=== PATIENT | female | born 1985 | race Caucasian/White ===

== ENCOUNTER → 2018-03-14 | Outpatient (REF) | payer OTHER ==
[2018-03-14 14:20] LABS: BASO % 0.8 % (0.0-1.0); EOS # 0.2 10^3/uL (0.0-0.50); EOS % 4.6 % (0.0-3.0); HEMATOCRIT 36.2 % (36.0-47.0); HEMOGLOBIN 12.1 g/dl (12.0-15.5); IMMATURE GRANULOCYTE % 0.2 % (0-3.0); LYMPH # 1.8 10^3/uL (1.5-4.5); LYMPH % 35.3 % (24.0-44.0); MEAN CORPUSCULAR HEMOGLOBIN 32.6 pg (27.0-33.0); MEAN CORPUSCULAR HGB CONC 33.4 g/dl (32.0-36.5); MEAN CORPUSCULAR VOLUME 97.6 fl (80.0-96.0); MONO # 0.4 10^3/uL (0.0-0.8); MONO % 8.3 % (0.0-5.0); NEUTROPHILS # 2.6 10^3/uL (1.8-7.7); NEUTROPHILS % 50.8 % (36.0-66.0); PLATELET COUNT, AUTOMATED 262 10^3/uL (150-450); RED BLOOD COUNT 3.71 10^6/uL (4.00-5.40); RED CELL DISTRIBUTION WIDTH 11.9 % (11.5-14.5); WHITE BLOOD COUNT 5.2 10^3/uL (4.0-10.0)
[2018-03-14 14:56] LABS: ALBUMIN 4.1 GM/DL (3.2-5.2); ALBUMIN/GLOBULIN RATIO 1.52 (1.00-1.93); ALKALINE PHOSPHATASE 52 U/L (45-117); ALT/SGPT 22 U/L (12-78); ANION GAP 10 MEQ/L (8-16); AST/SGOT 18 U/L (7-37); BILIRUBIN,TOTAL 0.4 MG/DL (0.2-1.0); BLOOD UREA NITROGEN 11 MG/DL (7-18); CALCIUM LEVEL 9.1 MG/DL (8.5-10.1); CARBON DIOXIDE LEVEL 26 MEQ/L (21-32); CHLORIDE LEVEL 104 MEQ/L (98-107); CREATININE FOR GFR 0.64 MG/DL (0.55-1.30); FOLATE 15.6 NG/ML; GLOMERULAR FILTRATION RATE > 60.0 (>60); GLUCOSE, FASTING 84 MG/DL (70-100); POTASSIUM SERUM 4.3 MEQ/L (3.5-5.1); PROLACTIN 39.3 NG/ML; RHEUMATOID FACTOR QUANT < 10.0 IU/ML (<15.0); SODIUM LEVEL 140 MEQ/L (136-145); TOTAL PROTEIN 6.8 GM/DL (6.4-8.2); VITAMIN B12 LEVEL > 2000.0 PG/ML
[2018-03-14 15:16] LABS: ERYTHROCYTE SEDIMENTATION RATE 16 mm/hr (0-20)
[2018-03-15 14:20] LABS: CERULOPLASMIN 22.2 mg/dL (19.0-39.0)
[2018-03-17 09:53] LABS: ANTINUCLEAR ANTIBODIES DIRECT Negative (Negative); COPPER PLASMA 98 ug/dL (72-166)
== END ==
LOC: M LABNEURO 13:58
DX: F95.9 Tic disorder, unspecified (principal)

== ENCOUNTER 2018-04-13 01:19 | Emergency (ER) | payer OTHER, SELFPAY ==
[2018-04-13] MEDS: MIDAZOLAM INJ 2 MG/2 ML VIAL (J2250) IV ×4 (01:32)
[2018-04-13] MEDS: NS 1,000 ML IV ×8 (01:32→11:24)
[2018-04-13 01:54] LABS: BASO # 0.1 10^3/uL (0.0-0.2); BASO % 0.6 % (0.0-1.0); EOS # 0.3 10^3/uL (0.0-0.50); HEMATOCRIT 34.4 % (36.0-47.0); HEMOGLOBIN 11.6 g/dl (12.0-15.5); IMMATURE GRANULOCYTE % 0.2 % (0-3.0); LYMPH % 37.3 % (24.0-44.0); MEAN CORPUSCULAR HEMOGLOBIN 32.4 pg (27.0-33.0); MEAN CORPUSCULAR HGB CONC 33.7 g/dl (32.0-36.5); MEAN CORPUSCULAR VOLUME 96.1 fl (80.0-96.0); MONO # 0.4 10^3/uL (0.0-0.8); MONO % 5.5 % (0.0-5.0); NEUTROPHILS # 4.2 10^3/uL (1.8-7.7); NEUTROPHILS % 52.4 % (36.0-66.0); PLATELET COUNT, AUTOMATED 259 10^3/uL (150-450); RED BLOOD COUNT 3.58 10^6/uL (4.00-5.40); RED CELL DISTRIBUTION WIDTH 11.6 % (11.5-14.5)
[2018-04-13 02:00] LABS: CONTROL LINE HCG INT CTR LINE PRESENT; HCG, SERUM QUALITATIVE NEGATIVE (NEGATIVE)
[2018-04-13 02:12] LABS: ACETAMINOPHEN LEVEL < 2.0 UG/ML (10.0-30.0); ALBUMIN 3.2 GM/DL (3.2-5.2); ALBUMIN/GLOBULIN RATIO 1.07 (1.00-1.93); ALKALINE PHOSPHATASE 59 U/L (45-117); ALT/SGPT 24 U/L (12-78); ANION GAP 10 MEQ/L (8-16); AST/SGOT 18 U/L (7-37); BILIRUBIN,DIRECT < 0.1 MG/DL (0.0-0.2); BILIRUBIN,TOTAL < 0.1 MG/DL (0.2-1.0); BLOOD UREA NITROGEN 11 MG/DL (7-18); CALCIUM LEVEL 7.6 MG/DL (8.5-10.1); CARBON DIOXIDE LEVEL 21 MEQ/L (21-32); CHLORIDE LEVEL 117 MEQ/L (98-107); CPK CREATINE PHOSPHOKINASE 115 U/L (26-192); CREATININE FOR GFR 0.78 MG/DL (0.55-1.30); ETHYL ALCOHOL (ETHANOL) 0.255 % (0.000-0.010); GLOMERULAR FILTRATION RATE > 60.0 (>60); GLUCOSE, FASTING 94 MG/DL (70-100); POTASSIUM SERUM 3.9 MEQ/L (3.5-5.1); SALICYLATE LEVEL < 1.7 MG/DL (5.0-30.0); SODIUM LEVEL 148 MEQ/L (136-145); TOTAL PROTEIN 6.2 GM/DL (6.4-8.2)
[2018-04-13 03:02] LABS: AMPHETAMINES LEVEL URINE NEGATIVE (NEGATIVE); BARBITURATES URINE NEGATIVE (NEGATIVE); BENZODIAZEPINES URINE POSITIVE (NEGATIVE); CANNABINOIDS URINE NEGATIVE (NEGATIVE); COCAINE METABOLITE URINE NEGATIVE (NEGATIVE); METHADONE URINE NEGATIVE (NEGATIVE); OPIATES URINE NEGATIVE (NEGATIVE); PHENCYCLIDINE URINE NEGATIVE (NEGATIVE)
[2018-04-13] MEDS: ENTER DRUG NAME HERE (PATIENT'S OWN MED) PO ×4 (10:01)
[2018-04-13] MEDS: TETRABENAZINE 12.5 MG PO ×4 (10:10)
== END 2018-04-13 14:44 | disposition home or self-care (01) ==
LOC: M ED 01:19
DX: F10.229 Alcohol dependence with intoxication, unspecified (principal); Y90.1 Blood alcohol level of 20-39 mg/100 ml; Z79.899 Other long term (current) drug therapy
CPT/HCPCS: J2250

== ENCOUNTER 2018-07-06 00:13 | Inpatient (IN) | payer OTHER ==
[~2018-07-06] VITALS: Ht 160 cm; Wt 63.4 kg
[~2018-07-06 00:13] MED LIST: CLON-412 PO; RISP0.2516 PO; TOPA50TA8 PO; [UNRECOGNIZED DRUG - CODE] PO
[2018-07-06] MEDS ORDERED: LIDOCAINE W/EPINEPHRINE 1% 20ML VIAL SC ONE (00:30)
[2018-07-06] MEDS ORDERED: MULTCAP PO (00:31)
[2018-07-06 01:20] LABS: HEMATOCRIT 39.8 % (36.0-47.0); HEMOGLOBIN 13.6 g/dl (12.0-15.5); MEAN CORPUSCULAR HEMOGLOBIN 32.2 pg (27.0-33.0); MEAN CORPUSCULAR HGB CONC 34.2 g/dl (32.0-36.5); MEAN CORPUSCULAR VOLUME 94.1 fl (80.0-96.0); PLATELET COUNT, AUTOMATED 298 10^3/uL (150-450); RED BLOOD COUNT 4.23 10^6/uL (4.00-5.40); WHITE BLOOD COUNT 7.6 10^3/uL (4.0-10.0)
[2018-07-06 01:26] LABS: HCG, SERUM QUALITATIVE NEGATIVE (NEGATIVE)
[2018-07-06 01:47] LABS: AMPHETAMINES LEVEL URINE NEGATIVE (NEGATIVE); BARBITURATES URINE NEGATIVE (NEGATIVE); BENZODIAZEPINES URINE NEGATIVE (NEGATIVE); CANNABINOIDS URINE NEGATIVE (NEGATIVE); COCAINE METABOLITE URINE NEGATIVE (NEGATIVE); METHADONE URINE NEGATIVE (NEGATIVE); OPIATES URINE NEGATIVE (NEGATIVE); PHENCYCLIDINE URINE NEGATIVE (NEGATIVE)
[2018-07-06 01:56] LABS: ACETAMINOPHEN LEVEL < 2.0 UG/ML (10.0-30.0); ALBUMIN 3.7 GM/DL (3.2-5.2); ALT/SGPT 22 U/L (12-78); BILIRUBIN,DIRECT < 0.1 MG/DL (0.0-0.2); BILIRUBIN,TOTAL 0.2 MG/DL (0.2-1.0); BLOOD UREA NITROGEN 13 MG/DL (7-18); CALCIUM LEVEL 8.1 MG/DL (8.5-10.1); CARBON DIOXIDE LEVEL 20 MEQ/L (21-32); CHLORIDE LEVEL 111 MEQ/L (98-107); CREATININE FOR GFR 0.69 MG/DL (0.55-1.30); ETHYL ALCOHOL (ETHANOL) 0.219 % (0.000-0.010); GLOMERULAR FILTRATION RATE > 60.0 (>60); GLUCOSE, FASTING 91 MG/DL (70-100); POTASSIUM SERUM 4.1 MEQ/L (3.5-5.1); SALICYLATE LEVEL < 1.7 MG/DL (5.0-30.0); SODIUM LEVEL 145 MEQ/L (136-145)
[2018-07-06] MEDS ORDERED: IBUPROFEN 600 MG TAB PO ONE (06:15)
[2018-07-06] MEDS ORDERED: LORazepam 2 MG TAB PO STA (09:23)
[2018-07-06] MEDS ORDERED: MAALOX 30 ML SUSP *UDC PO PRN (10:00)
[2018-07-06] MEDS ORDERED: traZODone 50 MG TAB PO PRN (10:00)
[2018-07-06] MEDS ORDERED: ACETAMINOPHEN TAB 650MG DOSE (2X325MG) PO PRN (10:00)
[2018-07-06] MEDS ORDERED: MOM 30ML SUSPENSION UDC PO PRN (10:00)
[2018-07-06] MEDS ORDERED: LORazepam 2 MG TAB PO PRN (10:00)
[2018-07-06] MEDS ORDERED: VITMTA PO (10:26)
[2018-07-06] MEDS ORDERED: IBUPOTC PO (10:26)
[2018-07-06] MEDS ORDERED: DULC5TAB PO (10:26)
[2018-07-06 11:30] VITALS: BP 135/95
[2018-07-06] MEDS: MULTIVITAMINS/MINERALS THERAP 1 TAB PO SCH (11:39)
[2018-07-06] MEDS: FOLIC ACID 1 MG TAB PO SCH (11:39)
[2018-07-06] MEDS: THIAMINE 100 MG TAB PO SCH ×2 (11:39→21:12)
--- NOTE | 2018-07-06 13:08 | HPEPDOC ---
[facility] Medical History & Physical Date of Admission Jul 06, 2018 History and Physical PCP: [facility] ATTENDING: Dr. Mack Spivey HPI: 33yoF admitted to [facility] for unspecified mood disorder, being medically examined today. The pt states she is treated for Tourette's Syndrome as per Dr Baig at [facility]. States she has a h/o vocal and motor tics. States she has been at her baseline. Pt with self inflicted wound to Left wrist with 7 sutures placed in ED. Denies any fevers, chills, weakness, fatigue, PICKARD, CP, SOB, cough, palpitations, abdominal pain, N/V/D or changes in bowel or bladder habits. PMHx: Tourette Syndrome. Pt states she takes tetrabenazine for her Tourette's as per Dr Baig at [facility]. Alcohol use chronic constipation. PSHX: BTL Leep procedure SOCHX: Resides in: [facility], from [facility] Marital Status: Kids: 1, lives with father in [facility]. Employment: unemployed Tobacco use: 1-2 per day and Vape ETOH: States when she drinks she consumes "As much as I can". somewhat vague. States drinks 1-2 times per month. Illicit Drugs: Denies IV Drug Use: Denies Tattoos done unprofessionally: Denies FAMHX: Mother: substance use Father: Alive, well Siblings: 1 brother Alive, well Children: Alive, well Unexpected deaths due to medical reasons: None. ROS: As noted in HPI, otherwise 11pt ROS of systems reviewed and remarkable only for LMP "3 weeks ago" per pt. PE: GEN: 33yoF, appears stated age. No acute distress. Alert and oriented x 3. HEENT: Normocephalic, atraumatic. Pupils are equal, round, and reactive to light. Extraocular movements are intact. No nystagmus appreciated. Sclera are nonicteric. Conjunctiva without injection. Nose midline. Nasal turbinates wi thout bogginess. EACs both patent BL. TMs both visualized and love with good cone of light, no bulging or erythema. No facial asymmetry. Moist mucous membranes. Dentition fair. Pharynx pink and moist, no cobblestoning. Neck supple, trachea midline. No lymphadenopathy or thyromegaly appreciated. CHEST: Regular rate and rhythm, +S1, +S2 LUNGS: Clear to auscultation bilaterally. No wheezes, rales, or rhonchi. Breathing appears symmetric and easy. Patient is speaking in full sentences. No accessory muscle use. ABD: Round, soft, non-tender, non-distended. +Bowel sounds throughout. No rebound or guarding. No costovertebral angle tenderness. EXT: Pulses 2+ bilaterally dorsalis pedis and radial. No lower extremity edema appreciated. SKIN: [place], dry, warm. Capillary refill <2sec. No rashes. Sutures intact at Lt forearm. NEURO: Alert and oriented x 3. Cranial nerves III-XII are intact. No focal deficits appreciated. The pt is noted to have both vocal and motor tics at this time (she states she has not had her medication yet today). EKG: pending A&P: 33yoF admitted to [facility] for unspecified mood disorder 1. Psych. Plan per Psychiatry. Obtain baseline EKG to assure the safety of psychiatric medications as they can prolong the QT interval. 2. Nicotine dependence. Patch available. 3. Tourette's Syndrome. Continue with tetrabenazine as per [facility]. Obtain copy of last note from [facility] for our records and review. Consider Neurology consult if needed. Outpt F/U with [facility]. 4. Follow up PCP on discharge. 5. Substance use. Management per psychiatry. Continue with MVI, Thiamine, and Folic Acid supplementation. 6. Chronic constipation. Continue Dulcolax daily as needed. 7. Staff member Rod BLUE present throughout exam. Vital Signs Vital Signs Date Time Temp Pulse Resp B/P (MAP) Pulse Ox O2 Delivery O2 Flow Rate FiO2 07/06/18 10:17 99.9 80 16 128/88 (101) 94 Room Air Laboratory Data Labs 24H Laboratory Tests 2 07/06/18 01:04: Nucleated Red Blood Cells % (auto) 0.0, Anion Gap 14, Glomerular Filtration Rate > 60.0, Calcium Level 8.1L, Aspartate Amino Transf (AST/SGOT) 17, Alanine Aminotransferase (ALT/SGPT) 22, Alkaline Phosphatase 67, Total Bilirubin 0.2, Direct Bilirubin < 0.1, Total Protein 7.0, Albumin 3.7, Albumin/Globulin Ratio 1.12, Thyroid Stimulating Hormone (TSH) 2.320, Human Chorionic Gonadotropin, Qual NEGATIVE, Salicylates Level < 1.7L, Urine Amphetamines Screen NEGATIVE, Urine Benzodiazepines Screen NEGATIVE, Urine Opiates Screen NEGATIVE, Urine Methadone Screen NEGATIVE, Acetaminophen Level < 2.0L, Urine Barbiturates Screen NEGATIVE, Urine Phencyclidine Screen NEGATIVE, Urine Cocaine Metabolite Screen NEGATIVE, Urine Cannabinoids Screen NEGATIVE, Ethyl Alcohol Level 0.219H CBC/BMP Laboratory Tests 07/06/18 01:04 Red Blood Count 4.23, Mean Corpuscular Volume 94.1, Mean Corpuscular Hemoglobin 32.2, Mean Corpuscular Hemoglobin Concent 34.2, Red Cell Distribution Width 12.2 Home Medications Scheduled Clonidine Hydrochloride (Clonidine HCl) 0.1 Mg Tab, 0.3 MG PO QHS Multivitamins *[facility] STOCKED* (Thera M Plus *[facility] STOCKED*) 1 Tab Tab, 1 TAB PO DAILY Tetrabenazine (Tetrabenazine) 12.5 Mg Tab, 12.5 MG PO BID Scheduled PRN Bisacodyl (Dulcolax) 5 Mg Tab, 5 MG PO DAILY PRN for CONSTIPATION Ibuprofen (Ibuprofen) 200 Mg Tab, 200 MG PO Q6H PRN for PAIN Allergies Coded Allergies: Sulfa Antibiotics (Verified Allergy, Severe, anaphylaxis, 07/06/18) Kourtney Zapata Jul 06, 2018 13:08
[2018-07-06] MEDS: NICOTINE 7 MG/24 HR TRANSDERMAL TD SCH (13:23)
[2018-07-06] MEDS: TETRABENAZINE 12.5 MG PO SCH ×2 (13:24→21:12)
[2018-07-06] MEDS: IBUPROFEN 600 MG TAB PO PRN (16:57)
[2018-07-06 18:00] VITALS: BP 151/80
[2018-07-06] MEDS ORDERED: SODIUM CHLORIDE NASAL 0.65% SPRAY BTL (OCEAN) PRN (18:00)
--- NOTE | 2018-07-06 20:52 | ECGEPIP ---
Stationary ECG Study 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
[2018-07-06] MEDS: cloNIDine 0.1 MG TAB PO SCH (21:12)
[2018-07-07 06:26] VITALS: BP 127/77
[2018-07-07 07:58] VITALS: BP 127/77
[2018-07-07] MEDS: THIAMINE 100 MG TAB PO SCH ×2 (08:08→21:46)
[2018-07-07] MEDS: MULTIVITAMINS/MINERALS THERAP 1 TAB PO SCH (08:08)
[2018-07-07] MEDS: TETRABENAZINE 12.5 MG PO SCH ×2 (08:08→17:21)
[2018-07-07] MEDS: FOLIC ACID 1 MG TAB PO SCH (08:08)
[2018-07-07] MEDS: IBUPROFEN 600 MG TAB PO PRN ×2 (08:08→15:54)
[2018-07-07] MEDS: NICOTINE 7 MG/24 HR TRANSDERMAL TD SCH (08:09)
[2018-07-07] MEDS: NICOTINE 14 MG/24 HR TRANSDERMAL TD SCH (09:32)
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
[2018-07-07 18:00] VITALS: BP 144/87
[2018-07-07] MEDS ORDERED: cloNIDine 0.1 MG TAB PO SCH (21:00)
[2018-07-07] MEDS: cloNIDine 0.1 MG TAB PO SCH (21:47)
[2018-07-08 06:40] VITALS: BP 130/69
[2018-07-08] MEDS: THIAMINE 100 MG TAB PO SCH ×2 (08:28→21:00)
[2018-07-08] MEDS: MULTIVITAMINS/MINERALS THERAP 1 TAB PO SCH (08:28)
[2018-07-08] MEDS: FOLIC ACID 1 MG TAB PO SCH (08:28)
[2018-07-08] MEDS: NICOTINE 14 MG/24 HR TRANSDERMAL TD SCH (08:29)
[2018-07-08] MEDS: TETRABENAZINE 12.5 MG PO SCH ×2 (09:23→16:30)
[2018-07-08] MEDS: IBUPROFEN 600 MG TAB PO PRN ×2 (10:28→21:48)
[2018-07-08 12:00] VITALS: BP 130/69
[2018-07-08] MEDS: BISACODYL 5 MG TAB PO PRN (15:10)
[2018-07-08 18:00] VITALS: BP 143/76
[2018-07-08] MEDS: cloNIDine 0.1 MG TAB PO SCH (21:47)
[2018-07-09 06:56] VITALS: BP 131/83
[2018-07-09] MEDS: IBUPROFEN 600 MG TAB PO PRN ×2 (08:00→17:45)
[2018-07-09] MEDS: FOLIC ACID 1 MG TAB PO SCH (08:00)
[2018-07-09] MEDS: MULTIVITAMINS/MINERALS THERAP 1 TAB PO SCH (08:00)
[2018-07-09] MEDS: TETRABENAZINE 12.5 MG PO SCH ×2 (08:00→16:10)
[2018-07-09] MEDS: NICOTINE 14 MG/24 HR TRANSDERMAL TD SCH (08:01)
[2018-07-09] MEDS: BISACODYL 5 MG TAB PO PRN (09:10)
[2018-07-09] MEDS ORDERED: MAGNESIUM CITRATE 300 ML BTL PO ONE (12:30)
--- NOTE | 2018-07-09 14:08 | IPN ---
DATE OF SERVICE: 07/08/2018 The patient continues to deny that she has ever had any suicidal ideations. She feels that it was the fact that she was intoxicated that led to her cutting herself. She continues to deny that she was depressed now or prior to coming into the hospital. MENTAL STATUS EXAMINATION: She is alert and oriented times three. Eye contact is fair. She is verbally spontaneous. There is no formal thought disorder noted. She says her mood is good. Affect is restricted, but appropriate to her mood. She is not psychotic, suicidal or homicidal. Concentration and memory is intact. Insight and judgment are fair. DIAGNOSIS: Unspecified depression. Rule out substance induced mood disorder. TREATMENT PLAN: The patient will continue to be monitored for continued denial of any suicidal ideation. We will continue to monitor for any possible mood symptoms that she is denying.
[2018-07-09 18:06] VITALS: BP 137/83
[2018-07-09 21:58] VITALS: BP 137/83
[2018-07-09] MEDS: cloNIDine 0.1 MG TAB PO SCH (21:58)
[2018-07-10 06:40] VITALS: BP 92/50
[2018-07-10] MEDS: NICOTINE 14 MG/24 HR TRANSDERMAL TD SCH (08:21)
[2018-07-10] MEDS: TETRABENAZINE 12.5 MG PO SCH (08:22)
[2018-07-10] MEDS: MULTIVITAMINS/MINERALS THERAP 1 TAB PO SCH (08:22)
[2018-07-10] MEDS: FOLIC ACID 1 MG TAB PO SCH (08:22)
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
--- NOTE | 2018-07-10 21:17 | MHIPN ---
DATE: 07/09/2018 The patient today continues to say that she is not suicidal. She continues to say that the only reason why she cut herself was because she was intoxicated. She continues to deny any mood symptoms. MENTAL STATUS EXAMINATION: She is alert and oriented times three. She is pleasant, cooperative, verbally spontaneous. Eye contact is good. There is no formal thought disorder noted. She says her mood is good. Affect is full range and appropriate. She is not psychotic, suicidal or homicidal. Concentration and memory are good. Insight and judgment fair. DIAGNOSES: 1. Unspecified depression. 2. Rule out substance induced mood disorder. TREATMENT PLAN: At this point, we will continue to monitor the patient for continued resolution of any suicidal or homicidal ideations and continued stabilization of her mood.
== END 2018-07-10 09:50 | disposition home or self-care (01) | DRG 881 ==
LOC: M ED 00:13 → EDBD 00:13 → M ED INP 09:55 → M PSY 10:52
PROVIDERS: ADMIT Psychiatry & Neurology Psychiatry; ATTEND Psychiatry & Neurology Psychiatry
PROC: 0HQEXZZ Repair Left Lower Arm Skin, External Approach (ICD-10-PCS; principal; 2018-07-06)
DX: F32.9 Major depressive disorder, single episode, unspecified (principal); F10.14 Alcohol abuse with alcohol-induced mood disorder; F95.2 Tourette's disorder; Z88.2 Allergy status to sulfonamides; Z79.899 Other long term (current) drug therapy; S51.812A Laceration without foreign body of left forearm, initial encounter; X78.1XXA Intentional self-harm by knife, initial encounter; Y92.009 Unspecified place in unspecified non-institutional (private) residence as the place of occurrence of the external cause; K59.00 Constipation, unspecified; F17.290 Nicotine dependence, other tobacco product, uncomplicated; Z63.0 Problems in relationship with spouse or partner